=== PATIENT | female | born 1975 | race Caucasian/White ===

== ENCOUNTER 2016-10-02 14:40 | Emergency (ER) | payer OTHER ==
[~2016-10-02] VITALS: Ht 165.1 cm; Wt 67.3 kg
[~2016-10-02 14:40] MED LIST: OXYC-57 PO
[2016-10-02 14:44] VITALS: TEMP 36.6; O2SAT 100; Ht 165.1 cm; Wt 67.3 kg
[2016-10-02] MEDS ORDERED: NAPR1TAB9 PO (14:55)
--- NOTE | 2016-10-02 15:16 | DIAGNOSTIC IMAGING REPORT ---
LEFT KNEE 3 VIEWS CLINICAL HISTORY: Left knee pain. FINDINGS: AP, crosstable lateral, and sunrise views of left knee are obtained. No prior studies are available for comparison at the time of dictation. The skeletal structures are well mineralized. No fracture is seen. The joint spaces of the knee are well-maintained. There is no joint effusion. The overlying soft tissues are within normal limits. IMPRESSION: Unremarkable radiographic assessment of the left knee. Electronically signed by: Nick Frye M.D. 10/02/2016 3:15 PM Dictated Date/Time: 10/02/2016 3:14 PM
[2016-10-02] MEDS ORDERED: TRAM-10 PO (15:37)
[2016-10-02] MEDS ORDERED: ACETAMINOPHEN 500 MG TAB PO STA (15:38)
[2016-10-02] MEDS ORDERED: TRAMADOL HCL 50 MG TAB PO STA (15:38)
[2016-10-02 15:50] VITALS: BP 135/71; PULSE 82
--- NOTE | 2016-10-02 16:53 | EMERGENCY ROOM VISIT NOTE ---
History First contact with patient: 14:47 Chief Complaint: KNEEPAIN Stated Complaint: L KNEE PAINFUL/CAN'T PUT PRESS ON IT History of Present Illness The patient is a 41 year old female who presents to the Emergency Room with complaints of persistent left knee pain. The patient now reports that she cannot even bend the knee because of discomfort. She reports that it feels like it wants to lock and click at times. The patient does not recall any known injury to the knee. She reports that her daughter had a meniscal tear, and is concerned that she has the same. She has not contacted her family doctor or orthopedics for evaluation. She rates her discomfort a 9 out of 10. Review of Systems 10 system review was performed and was negative except for pertinent positives and negatives as indicated in history of present illness Past Medical/Surgical History Surgical Problems: (1) Hx of tubal ligation Family History Cancer Kidney stones Seizures Social History Smoking Status: Former Smoker Alcohol Use: none Drug Use: none Housing Status: lives with family Occupation Status: unemployed Current/Historical Medications Scheduled PRN Naproxen (Aleve), 220 MG PO DIRECTED PRN for Pain Tramadol (Ultram), 1-2 TAB PO Q4H PRN for Pain Allergies Coded Allergies: Procaine (Verified Allergy, Severe, "WHOLE BODY SWELLS LIKE A BALLOON"., ) Clarithromycin (Verified Allergy, Intermediate, hives, 10/02/16) Uncoded Allergies: SUVILLA (Allergy, Intermediate, hives, can't breath, 11/14/14) Physical Exam Vital Signs Date Time Temp Pulse Resp B/P Pulse Ox O2 Delivery O2 Flow Rate FiO2 10/02/16 15:50 82 18 135/71 Room Air 10/02/16 14:44 36.6 90 16 142/84 100 Room Air Pain Rating (0-10): 8.0 Physical Exam CONSTITUTIONAL: Healthy and well nourished. Alert and oriented X 3 with positive affect. Patient appears in moderate discomfort. HEENT: Normocephalic, atraumatic. Pupils equal, round and reactive. NECK: Full active range of motion without discomfort. MUSCULOSKELETAL: Examination of the left knee does not show any obvious edema, ecchymosis, erythema or increased warmth to palpation. No joint effusion appreciated. The patient is currently resting her knee on a pillow in a 30 flexed position. Any attempted further extension causes significant discomfort the patient also refuses further flexion of the knee. She has tenderness to palpation over the posteromedial joint line. No popliteal masses noted. No tenderness to palpation through the upper gastroc, patellar tendon or quadriceps tendon. INTEGUMENTARY: No rash or other significant dermatologic conditions noted. NEUROLOGIC: No focal neurologic deficits noted. Medical Decision & Procedures ER Provider Diagnostic Interpretation: My interpretation of left knee x-rays does not show any acute fractures, dislocation or significant degenerative change. Radiologist report is as follows: LEFT KNEE 3 VIEWS CLINICAL HISTORY: Left knee pain. FINDINGS: AP, crosstable lateral, and sunrise views of left knee are obtained. No prior studies are available for comparison at the time of dictation. The skeletal structures are well mineralized. No fracture is seen. The joint spaces of the knee are well-maintained. There is no joint effusion. The overlying soft tissues are within normal limits. IMPRESSION: Unremarkable radiographic assessment of the left knee. Medications Administered Medications (Trade) Dose Ordered Sig/Ricki Route Start Time Stop Time Status Last Admin Dose Admin Tramadol HCl (Ultram Tab) 50 mg ONE STAT PO 10/02/16 15:38 10/02/16 15:39 DC 10/02/16 15:38 50 MG Acetaminophen (Tylenol Tab) 1,000 mg NOW STAT PO 10/02/16 15:38 10/02/16 15:39 DC 10/02/16 15:53 1,000 MG ED Course Patient history and physical exam were performed. Nurse's notes were reviewed. The patient had gone to x-ray prior to my exam. X-rays of the left knee were normal. I am concerned that the patient is unable to fully extend the knee, concerning for a mechanical impingement/blockage. The patient reports that she doubts that she could tolerate any immobilizer. The patient was dispensed crutches to remain nonweightbearing until she can follow-up with [facility]. She was encouraged to continue intermittently apply ice to the knee. Ibuprofen and Tylenol as needed for baseline pain relief. The patient was administered Ultram 50 mg and Tylenol 1000 mg in the emergency department, and was provided a prescription for Ultram as needed for breakthrough pain. The patient voiced understanding of all discharge instructions, was happy with plan of care, and rated her pain a 6 out of 10 at the time of discharge. Medical Decision Patient history and physical exam findings are concerning for possible posteromedial meniscal tear, possibly bucket-handle tear because the patient is unable to move her knee without significant discomfort. I do not suspect DVT, Singh's cyst, hematoma or abscess. Her exam is not consistent with cellulitis, intra-articular infection or gout. Impression Primary Impression: Left knee pain Departure Information Dispostion Home / Self-Care Condition GOOD Prescriptions Tramadol (Ultram) 50 Mg Tab 1-2 TAB PO Q4H Y for Pain, #20 TAB For Initial Treatment Prov: Alejo Small PA 10/02/16 Referrals Chase Thrasher D.Julia. Forms HOME CARE DOCUMENTATION FORM, IMPORTANT VISIT INFORMATION Patient Instructions My [facility] [email or web address] Additional Instructions Ice and elevate knee for swelling and pain. Use crutches - minimal weight on foot. Ibuprofen 800 mg and/or Tylenol 1000 mg every 8 hours. You may also alternate these medications for more effective pain relief: Ibuprofen --4 HRS--> Tylenol --4 HRS--> ibuprofen --4 HRS--> Tylenol .... Ultram if needed for worse pain. Follow-up with [facility] for further evaluation and treatment - call Mon AM for appointment. Problem Qualifiers Primary Impression: Left knee pain Chronicity: acute Qualified Codes: M25.562 - Pain in left knee
== END 2016-10-02 16:00 | disposition home or self-care (01) ==
LOC: C.EDB 14:42 → C.EDD 16:00
DX: M25.562 Pain in left knee (principal); Z98.51 Tubal ligation status; Z80.9 Family history of malignant neoplasm, unspecified; Z84.1 Family history of disorders of kidney and ureter; Z82.0 Family history of epilepsy and other diseases of the nervous system; Z87.891 Personal history of nicotine dependence

== ENCOUNTER 2016-12-05 11:41 | Emergency (ER) | payer OTHER ==
[~2016-12-05] VITALS: Ht 162.6 cm; Wt 65.0 kg
[~2016-12-05 11:41] MED LIST changes: +NAPR1TAB9 PO; -OXYC-57 PO; +TRAM-10 PO
[2016-12-05 11:44] VITALS: Ht 162.6 cm; Wt 65.0 kg
[2016-12-05] MEDS ORDERED: ACETAMINOPHEN 500 MG TAB PO STA (13:05)
[2016-12-05] MEDS ORDERED: KETOROLAC TROMETHAMINE 30 MG/ML VIAL IV STA (13:05)
[2016-12-05] MEDS ORDERED: SODIUM CHLORIDE 0.9% 1000ML 1,000 ML IV ONE (13:15)
[2016-12-05 13:24] LABS: BASO % 0.1 %; BASO ABS # 0.01 K/uL (0-0.2); COMPLETE YES; EOS % 0.1 %; HEMATOCRIT 39.2 % (37-47); IG% 0.2 %; LYMPH ABS # 1.01 K/uL (1.2-3.4); MEAN CELL VOLUME 86.2 fL (80-100); MEAN CORPUSCULAR HEMOGLOBIN 28.6 pg (25-34); MEAN CORPUSCULAR HGB CONC 33.2 g/dl (32-36); MEAN PLATELET VOLUME 10.1 fL (7.4-10.4); NEUT % 81.6 %; PLATELET COUNT 172 K/uL (130-400); RED BLOOD COUNT 4.55 M/uL (4.2-5.4); WHITE BLOOD COUNT 9.15 K/uL (4.8-10.8)
--- NOTE | 2016-12-05 13:25 | EMERGENCY ROOM VISIT NOTE ---
History First contact with patient: 13:02 Chief Complaint: FEVER Stated Complaint: FEVER,SWEATS,SORE THROAT,BODY ACHES History of Present Illness The patient is a 41 year old female who presents to the Emergency Room with complaints of a sore throat and fever that came on yesterday. She also complains of severe fatigue. She has allover body aches. She took her temperature last night and she reports that it was 102.7F. She took one Aleve at 3 in the morning with minimal relief of her symptoms. She complains of a mild headache. She denies any changes in vision or sensitivity to light. No nausea or vomiting. She denies any sick contacts. Review of Systems 10 system review performed and negative unless noted in HPI or below Past Medical/Surgical History Medical Problems: (1) Asthma (2) History Of Tobacco Use (3) Idiopathic Scoliosis (4) Kidney disease Surgical Problems: (1) History of shoulder surgery (2) History of wisdom tooth extraction (3) Hx of tubal ligation Fibromyalgia Family History Cancer Kidney stones Seizures Social History Smoking Status: Never Smoker Alcohol Use: none Drug Use: none Housing Status: lives with family Occupation Status: unemployed Current/Historical Medications Scheduled Amoxicillin (Amoxil), 500 MG PO TID Scheduled PRN Naproxen (Aleve), 220 MG PO DIRECTED PRN for Pain Allergies Coded Allergies: Procaine (Verified Allergy, Severe, "WHOLE BODY SWELLS LIKE A BALLOON"., ) Clarithromycin (Verified Allergy, Intermediate, hives, 10/02/16) Uncoded Allergies: SUVILLA (Allergy, Intermediate, hives, can't breath, 11/14/14) Physical Exam Vital Signs Date Time Temp Pulse Resp B/P (MAP) Pulse Ox O2 Delivery O2 Flow Rate FiO2 12/05/16 16:10 90 16 98/57 98 12/05/16 14:53 37.0 86 18 109/56 96 Room Air 12/05/16 11:44 36.9 119 20 134/83 96 Room Air Physical Exam VITALS: Vitals are noted on the nurse's note and reviewed by myself. Vital signs stable. GENERAL: 41-year-old female, in mild distress,,, nondiaphoretic, well-developed well-nourished. SKIN: The skin was without rashes, erythema, edema, or bruising. HEAD: Normocephalic atraumatic. EARS: External auditory canals clear. Right tympanic membrane is pearly youngblood without effusion. Left tympanic membrane is moderately erythematous with a small effusion noted. EYES: Conjunctivae without injection, sclerae without icterus. Extraocular movements intact. NOSE: Patent, turbinates without inflammation or discharge. No sinus tenderness. MOUTH: Mucous membranes slightly dry. Tonsils are moderately enlarged, erythematous with white exudate bilaterally. The airway is patent. Uvula is midline.. NECK: Supple without nuchal rigidity. Lymphadenopathy noted in the anterior cervical chain bilaterally. Cervical spine is nontender. No JVD. HEART: Regular rate and rhythm without murmurs gallops or rubs. LUNGS: Clear to auscultation bilaterally without wheezes, rales or rhonchi. No accessory muscle use. ABDOMEN: Positive bowel sounds x 4.Soft, nontender, without organomegaly. No guarding or rebound tenderness. MUSCULOSKELETAL: No muscle atrophy, erythema, or edema noted. . No tenderness to palpation. Strength 5/5 throughout. NEURO: Patient was alert and oriented to person place and time. Normal sensation to touch. No focal neurological deficits. Medical Decision & Procedures Laboratory Results 12/05/16 13:00 Red Blood Count 4.55, Mean Corpuscular Volume 86.2, Mean Corpuscular Hemoglobin 28.6, Mean Corpuscular Hemoglobin Concent 33.2, Mean Platelet Volume 10.1, Neutrophils (%) (Auto) 81.6, Lymphocytes (%) (Auto) 11.0, Monocytes (%) (Auto) 7.0, Eosinophils (%) (Auto) 0.1, Basophils (%) (Auto) 0.1, Neutrophils # (Auto) 7.46, Lymphocytes # (Auto) 1.01, Monocytes # (Auto) 0.64, Eosinophils # (Auto) 0.01, Basophils # (Auto) 0.01 12/05/16 13:00 Test 12/05/16 13:00 White Blood Count 9.15 K/uL (4.8-10.8) Red Blood Count 4.55 M/uL (4.2-5.4) Hemoglobin 13.0 g/dL (12.0-16.0) Hematocrit 39.2 % (37-47) Mean Corpuscular Volume 86.2 fL (80-100) Mean Corpuscular Hemoglobin 28.6 pg (25-34) Mean Corpuscular Hemoglobin Concent 33.2 g/dl (32-36) Platelet Count 172 K/uL (130-400) Mean Platelet Volume 10.1 fL (7.4-10.4) Neutrophils (%) (Auto) 81.6 % Lymphocytes (%) (Auto) 11.0 % Monocytes (%) (Auto) 7.0 % Eosinophils (%) (Auto) 0.1 % Basophils (%) (Auto) 0.1 % Neutrophils # (Auto) 7.46 K/uL (1.4-6.5) Lymphocytes # (Auto) 1.01 K/uL (1.2-3.4) Monocytes # (Auto) 0.64 K/uL (0.11-0.59) Eosinophils # (Auto) 0.01 K/uL (0-0.5) Basophils # (Auto) 0.01 K/uL (0-0.2) RDW Standard Deviation 40.2 fL (36.4-46.3) RDW Coefficient of Variation 12.6 % (11.5-14.5) Immature Granulocyte % (Auto) 0.2 % Immature Granulocyte # (Auto) 0.02 K/uL (0.00-0.02) Anion Gap 8.0 mmol/L (3-11) Est Creatinine Clear Calc Drug Dose 79.0 ml/min Estimated GFR () 104.6 Estimated GFR (Non- 90.2 BUN/Creatinine Ratio 11.9 (10-20) Calcium Level 8.9 mg/dl (8.5-10.1) Total Bilirubin 0.4 mg/dl (0.2-1) Aspartate Amino Transf (AST/SGOT) 17 U/L (15-37) Alanine Aminotransferase (ALT/SGPT) 20 U/L (12-78) Alkaline Phosphatase 55 U/L (45-117) Total Protein 7.5 gm/dl (6.4-8.2) Albumin 3.7 gm/dl (3.4-5.0) Globulin 3.8 gm/dl (2.5-4.0) Albumin/Globulin Ratio 1.0 (0.9-2) Medications Administered Medications (Trade) Dose Ordered Sig/Ricki Route Start Time Stop Time Status Last Admin Dose Admin Acetaminophen (Tylenol Tab) 500 mg STK-MED ONCE PO 12/05/16 13:30 12/05/16 13:31 DC 12/05/16 13:34 500 MG Ketorolac Tromethamine (Toradol Inj) 30 mg STK-MED ONCE .ROUTE 12/05/16 13:30 12/05/16 13:31 DC 12/05/16 13:30 30 MG Morphine Sulfate (MoRPHine SULFATE INJ) 4 mg ONE STAT IV 12/05/16 14:43 12/05/16 14:45 DC 12/05/16 14:54 4 MG Amoxicillin (Amoxil Cap) 500 mg NOW ONCE PO 12/05/16 14:45 12/05/16 14:46 DC 12/05/16 14:55 500 MG ED Course Patient was seen and examined Vital signs including blood pressure were reviewed medications list was verified with patient Labs were obtained, and a saline lock was established The patient was hydrated with 2 L of normal saline. She was given Tylenol 1 g po and Toradol 30 mg IV The patient was reevaluated, resting comfortably in bed. She said that most of her symptoms were better, but she still was complaining of a headache. She was ordered 1 dose of morphine 4 mg IV Upon reevaluation, the patient's headache was much better. We discussed the results of her workup. She voiced understanding. She was given 1 dose of amoxicillin. I reviewed discharge instructions the patient. They voiced understanding and had no further questions. Medical Decision Differential diagnosis: Peritonsillar abscess, strep pharyngitis, viral pharyngitis, influenza, pneumonia, meningitis, otitis media this patient is a 41-year-old female that presented to the emergency department with complaints of fever, sore throat and body aches. Upon exam, she does have white exudate and fairly erythematous and edematous tonsils. She also had lymphadenopathy. Although she is afebrile here, she does complain of a high fever at home. Her rapid strep was negative. Labs were unremarkable. Her clinical presentation however is consistent with possible strep tonsillitis. She will be covered with amoxicillin. She was given instructions on how to alternate Tylenol and ibuprofen. She will follow-up with her primary care physician this week for recheck or return to the emergency department with any new or worsening symptoms. Impression Primary Impression: Tonsillitis with exudate Departure Information Dispostion Home / Self-Care Condition GOOD Prescriptions Amoxicillin (AMOXIL) 500 Mg Cap 500 MG PO TID for 10 Days, #30 TAB Prov: Sandi Mahoney PA-C 12/05/16 Referrals Joan Vicente MD (PCP) Patient Instructions ED Tonsillitis, My [facility] Additional Instructions You Have been treated in the emergency department for possible tonsillitis. It is important for you to finish the entire course of antibiotics. Ibuprofen 800 mg and/or Tylenol 1000 mg every 8 hours. You may also alternate these medications for more effective pain relief: Ibuprofen --4 HRS--> Tylenol --4 HRS--> ibuprofen --4 HRS--> Tylenol .... Please stay well hydrated. Increase your water intake over the next several days. Please follow-up with your primary care physician this week for a recheck. Return to the emergency department if you have any of the following symptoms: -Inability to swallow -Difficulty opening or closing your mouth -Fever of 103F or greater despite Tylenol and ibuprofen -Severe headache or neck pain
[2016-12-05] MEDS ORDERED: ACETAMINOPHEN 500 MG TAB PO ONE (13:30)
[2016-12-05] MEDS ORDERED: KETOROLAC TROMETHAMINE 30 MG/ML VIAL ONE (13:30)
[2016-12-05 13:43] LABS: BUN/CREATININE RATIO 11.9 (10-20); CALCIUM 8.9 mg/dl (8.5-10.1); CREATININE 0.81 mg/dl (0.60-1.20); POTASSIUM 3.8 mmol/L (3.5-5.1)
[2016-12-05] MEDS ORDERED: MoRPHine SULFATE 4 MG/ML 1 ML CARP IV STA (14:43)
[2016-12-05] MEDS ORDERED: AMOXICILLIN 250 MG CAP PO ONE (14:45)
[2016-12-05] MEDS ORDERED: AMOX500C3 PO (14:50)
[2016-12-05 14:53] VITALS: TEMP 37
[2016-12-05 16:10] VITALS: BP 98/57; PULSE 90; O2SAT 98
== END 2016-12-05 16:11 | disposition home or self-care (01) ==
LOC: C.EDB 11:43 → C.EDC 16:11
DX: J03.90 Acute tonsillitis, unspecified (principal); J45.909 Unspecified asthma, uncomplicated; M41.20 Other idiopathic scoliosis, site unspecified; N28.9 Disorder of kidney and ureter, unspecified; Z80.9 Family history of malignant neoplasm, unspecified; Z84.1 Family history of disorders of kidney and ureter

== ENCOUNTER 2017-04-02 17:58 | Emergency (ER) | payer OTHER ==
[~2017-04-02] VITALS: Ht 162.6 cm; Wt 67.4 kg
[~2017-04-02 17:58] MED LIST changes: -TRAM-10 PO
[2017-04-02 18:01] VITALS: TEMP 36.7; Ht 162.6 cm; Wt 67.4 kg
[2017-04-02] MEDS ORDERED: IBUPROFEN 600 MG TAB PO STA (18:12)
[2017-04-02 18:37] LABS: BASO % 0.7 %; BASO ABS # 0.04 K/uL (0-0.2); COMPLETE YES; EOS % 1.3 %; HEMATOCRIT 39.2 % (37-47); IG% 0.2 %; LYMPH % 35.5 %; LYMPH ABS # 2.14 K/uL (1.2-3.4); MEAN CELL VOLUME 85.2 fL (80-100); MEAN CORPUSCULAR HEMOGLOBIN 29.1 pg (25-34); MEAN CORPUSCULAR HGB CONC 34.2 g/dl (32-36); MEAN PLATELET VOLUME 9.9 fL (7.4-10.4); NEUT % 52.3 %; PLATELET COUNT 214 K/uL (130-400); WHITE BLOOD COUNT 6.02 K/uL (4.8-10.8)
[2017-04-02] MEDS ORDERED: ACET-1256 PO (18:38)
[2017-04-02 18:48] LABS: URINE APPEARANCE CLEAR (CLEAR); URINE BILIRUBIN NEG (NEG); URINE COLOR YELLOW; URINE NITRITE NEG (NEG); URINE PH 7.5 (4.5-7.5); URINE SPECIFIC GRAVITY 1.009 (1.000-1.030); UROBILINOGEN NEG (NEG); ZZUR CULT IF INDIC CLEAN CATCH NO
[2017-04-02 18:51] LABS: MANUAL MICROSCOPIC REQUIRED? NO; REVIEW REQ? NO
[2017-04-02 18:55] LABS: BUN/CREATININE RATIO 9.3 (10-20); CALCIUM 9.1 mg/dl (8.5-10.1); CREATININE 0.81 mg/dl (0.60-1.20); POTASSIUM 3.8 mmol/L (3.5-5.1)
[2017-04-02 19:30] LABS: LYME DISEASE AB IGG NEG (NEG)
[2017-04-02 19:31] LABS: LYME DISEASE AB IGM NEG (NEG)
[2017-04-02] MEDS ORDERED: OXYCODONE HCL IR 5 MG TAB (IMMEDIATE RELEASE) PO STA (19:38)
[2017-04-02] MEDS ORDERED: DOXYCYCLINE HYCLATE 100 MG CAP PO STA ×2 (19:46→19:47)
[2017-04-02] MEDS ORDERED: DOXY-300 PO (19:47)
--- NOTE | 2017-04-02 19:48 | EMERGENCY ROOM VISIT NOTE ---
History First contact with patient: 18:06 Chief Complaint: BITE Stated Complaint: TICK BITE,PAIN EVERYWHERE, FATIGUE History of Present Illness The patient is a 41 year old female who presents to the Emergency Room via private vehicle accompanied by female and small child with complaints of "tick bite, pain everywhere, fatigue". The patient states that she noticed a tick bite and the umbilicus 2 weeks ago. She is able to remove it. She states that since then she has not quite felt right. She states that she for the past he has been fatigued, has diffuse body aches, neck pain, and feels febrile but notes by thermometer she is nonfebrile. She denies chance of . Review of Systems A complete 10-point Review of Systems was discussed with the patient, with pertinent positives and negatives listed in the History of Present Illness. All remaining Review of Systems questions can be considered negative unless otherwise specified. Past Medical/Surgical History Medical Problems: (1) Asthma (2) History Of Tobacco Use (3) Idiopathic Scoliosis (4) Kidney disease Surgical Problems: (1) History of shoulder surgery (2) History of wisdom tooth extraction (3) Hx of tubal ligation Family History Cancer Kidney stones Seizures Social History Smoking Status: Never Smoker Alcohol Use: none Drug Use: none Housing Status: lives with family Occupation Status: unemployed Current/Historical Medications Scheduled Acetaminophen (Tylenol), 1,000 MG PO PRN UD Doxycycline (Monohydrate) (Doxycycline), 100 MG PO BID Physical Exam Vital Signs Date Time Temp Pulse Resp B/P (MAP) Pulse Ox O2 Delivery O2 Flow Rate FiO2 04/02/17 20:01 78 18 137/81 100 Room Air 04/02/17 18:01 36.7 103 18 127/84 99 Room Air Physical Exam VITAL SIGNS - Vital signs and nursing notes were reviewed. Stable. Tachycardic slightly at 10 3 bpm. GENERAL -41-year-old female appearing her stated age who is in no acute distress. Communicates well with provider and answers questions appropriately. SKIN - Without rashes. There is no erythema migrans or bull's-eye-like rash. The region of the umbilicus is unremarkable. HEAD - NC/AT. EYES - PERRL with EOMI bilaterally. Sclera anicteric. No hyphema. EARS - No deformities of external structures noted on gross examination bilaterally. No pain elicited with palpation of the tragus bilaterally. External auditory canals without discharge or otorrhea. Tympanic membranes pearly youngblood without retraction or bulging. No fluid or purulent material visualized behind the TM. Handle of malleus, umbo, cone of light, pars tensa/ flaccid all easily visualized. NOSE - Midline and without cyanosis. No epistaxis or purulent drainage noted. MOUTH/OROPHARYNX - Without perioral cyanosis. NECK - Neck with FROM. Supple to palpation. LUNGS - Chest wall symmetric without accessory muscle use, intercostals retractions, or central cyanosis. Normal vesicular breath sounds CTA B/L. No wheezes, rales, or rhonchi appreciated. CARDIAC - RRR with S1/S2. No murmur, rubs, or gallops appreciated. EXTREMITIES - No clubbing or peripheral cyanosis. No pretibial edema present.+5/ 5 strength noted in UE/LE bilaterally. NEUROLOGIC - Cranial nerves II through XII grossly intact. Sensory intact to light touch throughout. PSYCH - A&O, and cooperates fully with examiner. Pt is very pleasant and interacts well with examiner. Medical Decision & Procedures Laboratory Results 04/02/17 18:25 Red Blood Count 4.60, Mean Corpuscular Volume 85.2, Mean Corpuscular Hemoglobin 29.1, Mean Corpuscular Hemoglobin Concent 34.2, Mean Platelet Volume 9.9, Neutrophils (%) (Auto) 52.3, Lymphocytes (%) (Auto) 35.5, Monocytes (%) (Auto) 10.0, Eosinophils (%) (Auto) 1.3, Basophils (%) (Auto) 0.7, Neutrophils # (Auto ) 3.15, Lymphocytes # (Auto) 2.14, Monocytes # (Auto) 0.60, Eosinophils # (Auto ) 0.08, Basophils # (Auto) 0.04 04/02/17 18:25 Test 04/02/17 18:25 04/02/17 18:30 White Blood Count 6.02 K/uL (4.8-10.8) Red Blood Count 4.60 M/uL (4.2-5.4) Hemoglobin 13.4 g/dL (12.0-16.0) Hematocrit 39.2 % (37-47) Mean Corpuscular Volume 85.2 fL (80-100) Mean Corpuscular Hemoglobin 29.1 pg (25-34) Mean Corpuscular Hemoglobin Concent 34.2 g/dl (32-36) Platelet Count 214 K/uL (130-400) Mean Platelet Volume 9.9 fL (7.4-10.4) Neutrophils (%) (Auto) 52.3 % Lymphocytes (%) (Auto) 35.5 % Monocytes (%) (Auto) 10.0 % Eosinophils (%) (Auto) 1.3 % Basophils (%) (Auto) 0.7 % Neutrophils # (Auto) 3.15 K/uL (1.4-6.5) Lymphocytes # (Auto) 2.14 K/uL (1.2-3.4) Monocytes # (Auto) 0.60 K/uL (0.11-0.59) Eosinophils # (Auto) 0.08 K/uL (0-0.5) Basophils # (Auto) 0.04 K/uL (0-0.2) RDW Standard Deviation 39.4 fL (36.4-46.3) RDW Coefficient of Variation 12.7 % (11.5-14.5) Immature Granulocyte % (Auto) 0.2 % Immature Granulocyte # (Auto) 0.01 K/uL (0.00-0.02) Anion Gap 5.0 mmol/L (3-11) Est Creatinine Clear Calc Drug Dose 86.3 ml/min Estimated GFR () 104.6 Estimated GFR (Non- 90.2 BUN/Creatinine Ratio 9.3 (10-20) Calcium Level 9.1 mg/dl (8.5-10.1) Total Bilirubin 0.3 mg/dl (0.2-1) Aspartate Amino Transf (AST/SGOT) 26 U/L (15-37) Alanine Aminotransferase (ALT/SGPT) 35 U/L (12-78) Alkaline Phosphatase 59 U/L (45-117) Total Protein 7.8 gm/dl (6.4-8.2) Albumin 3.9 gm/dl (3.4-5.0) Globulin 3.9 gm/dl (2.5-4.0) Albumin/Globulin Ratio 1.0 (0.9-2) Lyme Disease IgG Antibody NEG (NEG) Lyme Disease IgM Antibody NEG (NEG) Urine Color YELLOW Urine Appearance CLEAR (CLEAR) Urine pH 7.5 (4.5-7.5) Urine Specific [place] 1.009 (1.000-1.030) Urine Protein NEG (NEG) Urine Glucose (UA) NEG (NEG) Urine Ketones NEG (NEG) Urine Occult Blood NEG (NEG) Urine Nitrite NEG (NEG) Urine Bilirubin NEG (NEG) Urine Urobilinogen NEG (NEG) Urine Leukocyte Esterase NEG (NEG) Urine Test NEG (NEG) Medications Administered Medications (Trade) Dose Ordered Sig/Ricki Route Start Time Stop Time Status Last Admin Dose Admin Ibuprofen (Motrin Tab) 600 mg NOW STAT PO 04/02/17 18:12 04/02/17 18:14 DC 04/02/17 18:29 600 MG Oxycodone HCl (Roxicodone Immediate Rel Tab) 5 mg NOW STAT PO 04/02/17 19:38 04/02/17 19:39 DC 04/02/17 20:02 5 MG Doxycycline Hyclate (Vibramycin Cap) 100 mg ONE STAT PO 04/02/17 19:46 04/02/17 19:47 DC 04/02/17 20:03 100 MG Doxycycline Hyclate (Vibramycin Cap) 100 mg ONE STAT PO 04/02/17 19:47 04/02/17 19:48 DC 04/02/17 20:03 100 MG Medical Decision Patient was seen and evaluated as above. She presents twisted a post tick bite with unusual symptoms. This is certainly concerning for Lyme disease. Test was initiated and found to be negative. Baseline labs were obtained and reveals no leukocytosis or concerning anemia. Metabolic panel reveals no emergent process. Urinalysis was negative. Urine test was negative. At this time I did discuss the case with the attending physician, and the decision was made to treat her for suspected Lyme disease given her presentation and symptomatology. She'll be given doxycycline. She was educated upon management, educated upon worrisome symptoms which to return, and was discharged home in good condition. She is to follow with her family doctor for recheck of her current condition as soon as possible. She is to return for worsening. For her pain she was also given ibuprofen and oxycodone. She indicated that she was not driving. In evaluation treatment this patient following differential diagnoses were entertained: Erythema migrans, Lyme disease, meningitis, encephalitis, stress reaction, viral process, among others. Impression Primary Impression: Tick bite Additional Impressions: Fatigue Body aches Departure Information Dispostion Home / Self-Care Condition GOOD Prescriptions Doxycycline (Monohydrate) (Doxycycline) 100 Mg Cap 100 MG PO BID for 20 Days, #40 TABS Prov: Vidal Cantu PA-C 04/02/17 Referrals Joan Vicente MD (PCP) Patient Instructions My [facility] Additional Instructions You were seen in the emergency department for diffuse body pain, neck pain, fever sensation following a tick bite. At this time despite normal blood work I will treat you as if you have Lyme disease secondary to the concern and presentation. You have been prescribed Doxycycline to be taken as prescribed. This is an antibiotic. All antibiotics have the potential to cause diarrhea. Stop this medication and contact a medical provider if you were to develop any significant adverse side effects including: wheezing, shortness of breath, passing out, vomiting, or a diffuse rash. Always take antibiotics as directed and COMPLETE the ENTIRE course regardless of the improvement of your symptoms. Protect yourself with sunscreen while on this antibiotic as it increases your skin's sensitivity to the light and cause bad sunburns. In addition, you should be sure to take this pill after eating. Make sure the pill is completely swallowed as this medication can cause irritation to the lining of the esophagus. Do NOT drink milk or eat anything with large amounts of Calcium in them 1 hour prior to taking this medication as this will decrease the effectiveness of the medication. This is for 21 days. Please take your next dose around 8 AM tomorrow. It is then every 12 hours. Please cone picker the rest of the pharmacy. Please return with any new/concerning symptoms. Please schedule follow-up with your family doctor this coming week. Thank you for your time. Problem Qualifiers
[2017-04-02] MEDS ORDERED: EMPTY 8 DRAM VIAL ONE (19:53)
[2017-04-02 20:01] VITALS: BP 137/81; PULSE 78; O2SAT 100
== END 2017-04-02 20:06 | disposition home or self-care (01) ==
LOC: C.EDB 17:58 → C.EDD 20:06
DX: S30.861A Insect bite (nonvenomous) of abdominal wall, initial encounter (principal); W57.XXXA Bitten or stung by nonvenomous insect and other nonvenomous arthropods, initial encounter; R53.83 Other fatigue; M79.1 Myalgia; J45.909 Unspecified asthma, uncomplicated; N28.9 Disorder of kidney and ureter, unspecified; Z84.1 Family history of disorders of kidney and ureter; Z82.0 Family history of epilepsy and other diseases of the nervous system

== ENCOUNTER 2017-09-07 19:25 | Emergency (ER) | payer OTHER ==
[~2017-09-07] VITALS: Ht 165.1 cm; Wt 68.9 kg
[~2017-09-07 19:25] MED LIST changes: +ACET-1256 PO; +DOXY-300 PO; -NAPR1TAB9 PO
[2017-09-07 19:28] VITALS: Ht 165.1 cm; Wt 68.9 kg
[2017-09-07] MEDS ORDERED: IBUPROFEN 600 MG TAB PO STA (20:41)
[2017-09-07] MEDS ORDERED: OPTIRAY 320 IV PRN (21:00)
--- NOTE | 2017-09-07 21:01 | EMERGENCY ROOM VISIT NOTE ---
History First contact with patient: 20:29 Chief Complaint: DENTAL PAIN Stated Complaint: LOWER JAW PAIN Nursing Triage Summary: pt reports lower teeth hurt and feels like an abcess in there did not attempt to contact dentist History of Present Illness The patient is a 42 year old female who presents to the Emergency Room with complaints of swelling of the gums under her bottom central incisors that she noticed last night. The patient reports pain in the area. She also thought that there was purulent discharge from the area last night. she reports chills. She tried to take her temperature. The thermometer reportedly was not working. She has tried Tylenol with minimal relief of the pain. Review of Systems 6 system review negative. Please see pertinent positives in the history of present illness section. Past Medical/Surgical History Medical Problems: (1) Asthma (2) History Of Tobacco Use (3) Idiopathic Scoliosis (4) Kidney disease Surgical Problems: (1) History of shoulder surgery (2) History of wisdom tooth extraction (3) Hx of tubal ligation Family History Cancer Kidney stones Seizures Social History Smoking Status: Current Every Day Smoker Alcohol Use: none Drug Use: none Housing Status: lives with family Occupation Status: unemployed Current/Historical Medications Scheduled Acetaminophen (Tylenol), 1,000 MG PO PRN UD Doxycycline (Monohydrate) (Doxycycline), 100 MG PO BID Physical Exam Vital Signs Date Time Temp Pulse Resp B/P (MAP) Pulse Ox O2 Delivery O2 Flow Rate FiO2 18/18 19:28 37.0 83 20 125/82 99 Room Air Physical Exam VITALS: Vitals are noted on the nurse's note and reviewed by myself. Vital signs stable. GENERAL: 42-year-old female, obviously anxious in appearance, SKIN: The skin was without rashes, erythema, edema, or bruising. HEAD: Normocephalic atraumatic. EARS: External auditory canals clear, tympanic membranes pearly youngblood without erythema or effusion bilaterally. EYES:Conjunctivae without injection, sclerae without icterus. Extraocular movements intact. MOUTH: Mucous membranes moist. Approximately 1 cm area of erythema and swelling of the gums inferior to the central lower incisors. No purulent drainage noted. Dentition is overall fair. Tonsils are not enlarged. Pharynx without erythema or exudate. Uvula midline. Airway patent. Tongue does not deviate. NECK: Supple without nuchal rigidity. No lymphadenopathy. Cervical spine is nontender. No JVD. MUSCULOSKELETAL: Strength 5/5 throughout. NEURO: Patient was alert and oriented to person place and time. Normal sensation to touch. No focal neurological deficits. Medical Decision & Procedures ER Provider Diagnostic Interpretation: CT soft tissue neck with IV contrast IMPRESSION: Findings consistent with odontogenic abscess accompanied by periapical lucency and cortical erosion at the left central mandibular incisor. Electronically signed by: Basilio Delacruz M.D. 09/07/2017 10:49 PM Dictated Date/Time: 09/07/2017 10:46 PM Laboratory Results 09/07/17 21:00 Test 09/07/17 21:00 Anion Gap 4.0 mmol/L (3-11) Est Creatinine Clear Calc Drug Dose 84.1 ml/min Estimated GFR () 98.0 Estimated GFR (Non- 84.5 BUN/Creatinine Ratio 12.1 (10-20) Calcium Level 9.1 mg/dl (8.5-10.1) Medications Administered Medications (Trade) Dose Ordered Sig/Ricki Route Start Time Stop Time Status Last Admin Dose Admin Ibuprofen (Motrin Tab) 600 mg ONE STAT PO 09/07/17 20:41 09/07/17 20:45 DC 09/07/17 21:10 600 MG ED Course Patient was seen and examined Vital signs including blood pressure were reviewed medications list was verified with patient Labs were obtained, and a saline lock was established The patient was medicated with Motrin 600 mg Imaging was reviewed. The patient was reassessed and resting comfortably. We discussed the results of her workup. She voiced understanding. She was given 1 dose of amoxicillin. She was also given a home pack of [place]. I reviewed discharge instructions the patient. They voiced understanding and had no further questions. Medical Decision Differential diagnosis: Abscess, fracture, chronic pain, dental caries, John' s angina This patient is a 42-year-old female that presents to the emergency department with complaints of pain over central lower gums and swelling with discharge. On exam, she did have some swelling in the area consistent with a possible infection. There is no pointing or drainage noted. A CT scan confirms a small abscess associated with the left central incisor. This makes sense with her symptoms. She does not have any symptoms of John's angina on exam. The patient will be treated with antibiotics and pain medication. She will follow- up with her dentist for definitive care. This chart was completed in part utilizing [employer] Speech Voice Recognition software. Attempts were made to minimize the grammatical errors, random word insertions, pronoun errors and incomplete sentences. Any formal questions or concerns about the content, text or information contained within the body of this dictation should be directly addressed to the provider for clarification. Medication Reconcilliation Current Medication List: was personally reviewed by me Blood Pressure Screening Patient's blood pressure: Normal blood pressure Impression Primary Impression: Dental infection Departure Information Dispostion Home / Self-Care Condition GOOD Prescriptions Hydrocodone/Acetaminophen 5MG/325MG ([place] 5MG/325MG) Tab 1-2 TABLET PO Q4H Y for Pain, #15 TAB For Initial Treatment Prov: Sandi Mahoney PA-C 09/07/17 Amoxicillin (AMOXIL) 875 Mg Tab 875 MG PO BID for 10 Days, #20 TAB Prov: Sandi Mahoney PA-C 09/07/17 Referrals Joan Vicente MD (PCP) Patient Instructions My [facility] Additional Instructions You were evaluated tonight in the emergency department for a dental infection Please take the ENTIRE course of amoxicillin Ibuprofen 600 mg every 6 hours [place] 1-2 tabs every 4 hours for severe pain. Do not drink alcohol or drive while taking this medication. This may be taken with ibuprofen, but avoid Tylenol. Please call your dentist first thing tomorrow morning for a follow-up appointment Please do not hesitate to return to the emergency department with any new, worsening or concerning symptoms
[2017-09-07 22:16] LABS: CALCIUM 9.1 mg/dl (8.5-10.1); CREATININE 0.85 mg/dl (0.60-1.20); POTASSIUM 4.1 mmol/L (3.5-5.1)
--- NOTE | 2017-09-07 22:50 | DIAGNOSTIC IMAGING REPORT ---
SOFT TISSUE NECK WITH CLINICAL HISTORY: 42 years-old Female presenting with ?abscess, lower jaw pain. TECHNIQUE: Multidetector CT of the neck was performed after the administration of intravenous contrast. IV contrast: 93 mL of Optiray 320. A dose lowering technique was used consistent with the principles of ALARA (as low as reasonably achievable). COMPARISON: None. CT DOSE (mGy.cm): The estimated cumulative dose is 359.05 mGycm. FINDINGS: [place] Trimmer topogram: Unremarkable. Amalgam in the mandibular teeth mild degrade evaluation of the oral cavity. The maxillary teeth are absent. Periapical lucency focally at the left central mandibular incisor (series 3 image 83). There is overlying cortical erosion, soft tissue swelling, buccal hyperenhancement, and suggestion of a small rim-enhancing collection measuring 12 x 3 mm (series 3 image 82). The remainder of the face and neck are within normal limits. No lymphadenopathy. Vessels patent. Cervical spine normal. Visualized portion of the paranasal sinuses and mastoid air cells clear. Visualized portion of the orbits normal. Limited intracranial evaluation normal. Lung apices clear. IMPRESSION: Findings consistent with odontogenic abscess accompanied by periapical lucency and cortical erosion at the left central mandibular incisor. Electronically signed by: Basilio Delacruz M.D. 09/07/2017 10:49 PM Dictated Date/Time: 09/07/2017 10:46 PM
[2017-09-07] MEDS ORDERED: AMOXICILLIN 500 MG CAP PO STA (22:55)
[2017-09-07] MEDS ORDERED: AMOX875T3 PO (22:59)
[2017-09-07] MEDS ORDERED: HYDR-5688 PO (22:59)
[2017-09-07] MEDS ORDERED: NORCO 5/325MG HOME PACK PO ONE (23:00)
[2017-09-07] MEDS ORDERED: AMOXICILLIN 250 MG CAP PO ONE (23:03)
[2017-09-07 23:12] VITALS: BP 125/82; PULSE 83; TEMP 37; O2SAT 99
== END 2017-09-07 23:13 | disposition home or self-care (01) ==
LOC: C.EDB 19:26 → C.EDD 23:13
DX: K04.7 Periapical abscess without sinus (principal); J45.909 Unspecified asthma, uncomplicated; N18.9 Chronic kidney disease, unspecified; M41.20 Other idiopathic scoliosis, site unspecified; F17.200 Nicotine dependence, unspecified, uncomplicated